=== PATIENT | male | born 1990 | race Caucasian/White ===

== ENCOUNTER 2017-02-22 18:38 | Emergency (ER) | payer OTHER ==
--- NOTE | 2017-02-22 18:51 | EDM.PDOC ---
<Carroll Paulson M - Last Filed: 02/22/17 18:46> ED HPI GENERAL MEDICAL PROBLEM - General Chief Complaint: Lower Extremity Injury/Pain Stated Complaint: FOOT INJURY Time Seen by Provider: 02/22/17 18:46 Source of Information: Reports: Patient History Limitations: Reports: No Limitations - History of Present Illness INITIAL COMMENTS - FREE TEXT/NARRATIVE: Patient reports putting his foot into an auger hole and twisted his foot. This happened around 2 today. He has iced the foot. He rates his pain a 5-6, but pain is worsening. He has no other complaints. Smokes 1 PPD x 6 years. No drugs, no alcohol. Onset: Today Onset Time: 14:00 Duration: Getting Worse Location: Reports: Lower Extremity, Right Quality: Reports: Ache, Sharp Severity: Moderate Worsens with: Reports: Movement Context: Reports: Other (at work) Associated Symptoms: Reports: No Other Symptoms - Related Data Allergies Allergy/AdvReac Type Severity Reaction Status Date / Time Penicillins Allergy Rash Verified 02/22/17 18:49 Home Meds: Home Meds FLUoxetine [PROzac] 40 mg DAILY 06/17/16 [History] buPROPion HCl [Wellbutrin Xl] 150 mg PO DAILY 02/22/17 [History] Past Medical History Psychiatric History: Reports: Anxiety, Depression Social & Family History - Tobacco Use Smoking Status *Q: Current Every Day Smoker Years of Tobacco use: 5 Packs/Tins Daily: 1 - Alcohol Use Days Per Week of Alcohol Use: 7 Number of Drinks Per Day: 3 Total Drinks Per Week: 21 - Recreational Drug Use Recreational Drug Use: Yes Drug Use in Last 12 Months: Yes Recreational Drug Type: Reports: Marijuana/Hashish Recreational Drug Use Frequency: Daily Recreational Drug Last Use: 05/29/14 Review of Systems - Review of Systems Review Of Systems: See Below Constitutional: Reports: No Symptoms Eyes: Reports: No Symptoms Ears: Reports: No Symptoms Nose: Reports: No Symptoms Mouth/Throat: Reports: No Symptoms Respiratory: Reports: No Symptoms Cardiovascular: Reports: No Symptoms GI/Abdominal: Reports: No Symptoms Genitourinary: Reports: No Symptoms Musculoskeletal: Reports: Foot Pain Skin: Reports: No Symptoms Neurological: Reports: No Symptoms Psychiatric: Reports: No Symptoms ED EXAM, GENERAL - Physical Exam Exam: See Below Free Text/Narrative:: Right foot examined with no palpable or visible deformity noticed. Exam Limited By: No Limitations General Appearance: Alert, WD/WN, Anxious, Mild Distress Eye Exam: Bilateral Eye: EOMI, PERRL Head: Atraumatic, Normocephalic Cardiovascular: Tachycardia Extremities: Normal Inspection, Normal Range of Motion, Non-Tender, No Pedal Edema, Normal Capillary Refill Neurological: Alert, Oriented, CN II-XII Intact, Normal Cognition, No Motor/ Sensory Deficits Psychiatric: Normal Affect, Normal Mood Skin Exam: Warm, Dry, Intact, Normal Color Course - Vital Signs Last Recorded V/S: Last Vital Signs Temp 37.6 C 02/22/17 18:40 Pulse 120 H 02/22/17 18:40 Resp 20 02/22/17 18:40 BP 165/79 H 02/22/17 18:40 Pulse Ox - Orders/Labs/Meds Orders: Active Orders 24 hr Category Date Time Status Foot Comp Min 3V Rt [CR] Stat Exams 02/22/17 18:48 Ordered Departure - Departure Disposition: Home, Self-Care 01 Clinical Impression: Encounter related to worker's compensation claim Right ankle sprain Qualifiers: Encounter type: initial encounter Involved ligament of ankle: unspecified ligament Qualified Code(s): S93.401A - Sprain of unspecified ligament of right ankle, initial encounter Fall Qualifiers: Encounter type: initial encounter Qualified Code(s): W19.XXXA - Unspecified fall, initial encounter - Discharge Information Instructions: Ankle Sprain Referrals: Leticia Rios MEDICAL CLINIC MANAGER [Primary Care Provider] - Forms: ED Department Discharge Additional Instructions: 1. Stay well hydrated and rest 2. Use PRIYANKA wrap to help control swelling and pain 3. Rest, elevate, and ice several times a day 4. May weight bare as tolerated 5. Symptoms may get worse over the next couple days, this is normal 6. Schedule a follow up appointment with your Primary for next week for a recheck <Bert Munoz - Last Filed: 02/22/17 19:26> ED HPI GENERAL MEDICAL PROBLEM Right Feet Pain Score (Numeric/FACES): 5 Social & Family History - Family History Family Medical History: Noncontributory Course - Radiology Interpretation Free Text/Narrative:: Ankle xray: No acute fracture or dislocation; see scanned document in EMR Departure - Departure Time of Disposition: 19:24 Condition: Good - Problem List Review Problem List Initiated/Reviewed/Updated: Yes
[2017-02-22 19:04] VITALS: BP 165/79
== END 2017-02-22 19:37 | disposition home or self-care (01) ==
LOC: VM.ED 18:38
DX: S93.401A Sprain of unspecified ligament of right ankle, initial encounter (principal); F17.210 Nicotine dependence, cigarettes, uncomplicated; F41.9 Anxiety disorder, unspecified; F32.9 Major depressive disorder, single episode, unspecified; Z79.899 Other long term (current) drug therapy; Z88.0 Allergy status to penicillin; W19.XXXA Unspecified fall, initial encounter; X50.1XXA Overexertion from prolonged static or awkward postures, initial encounter; Y92.69 Other specified industrial and construction area as the place of occurrence of the external cause; Y99.0 Civilian activity done for income or pay
CPT/HCPCS: 73630-RT; 99283

== ENCOUNTER 2020-03-15 15:21 | Emergency (ER) | payer OTHER ==
[2020-03-15 15:35] VITALS: BP 120/82; PULSE 95
--- NOTE | 2020-03-15 15:46 | EDM.PDOC ---
ED HPI GENERAL MEDICAL PROBLEM - General Chief Complaint: Laceration Stated Complaint: LACERATION TO RIGHT KNUCKLE Time Seen by Provider: 03/15/20 15:30 Source of Information: Reports: Patient History Limitations: Reports: No Limitations - History of Present Illness INITIAL COMMENTS - FREE TEXT/NARRATIVE: Patient comes into the emergency department with complaints of a laceration to his right hand. States that he was up moving and his hand slipped and slid underneath some metal causing a laceration to his fourth digit knuckle the patient states he was able to control the bleeding with direct pressure. Patient denies any numbness or tingling sensation distally or proximally of the laceration. He also denies any concerns with CMS or range of motion issues. Patient states that he has no recollection of when his Tdap was last he did but does feel that it was greater than 5 years ago. Denies any other concerns or complaints and states he is been relatively healthy. Onset: Today, Sudden Location: Reports: Upper Extremity, Right Quality: Reports: Throbbing Severity: Mild Improves with: Reports: Immobilization Worsens with: Reports: Movement Context: Reports: Activity Associated Symptoms: Reports: No Other Symptoms Right Finger-Ring Pain Score (Numeric/FACES): 5 - Related Data Allergies Allergy/AdvReac Type Severity Reaction Status Date / Time Penicillins Allergy Rash Verified 03/15/20 15:37 Home Meds: Home Meds FLUoxetine [PROzac] 40 mg PO DAILY 06/17/16 [History] buPROPion HCL [Wellbutrin Xl] 150 mg PO DAILY 02/22/17 [History] Past Medical History - Past Health History Medical/Surgical History: Denies Medical/Surgical History Psychiatric History: Reports: Anxiety, Depression Social & Family History - Family History Family Medical History: Noncontributory ED ROS GENERAL - Review of Systems Review Of Systems: Comprehensive ROS is negative, except as noted in HPI. Constitutional: Reports: No Symptoms HEENT: Reports: No Symptoms Respiratory: Reports: No Symptoms Cardiovascular: Reports: No Symptoms Endocrine: Reports: No Symptoms GI/Abdominal: Reports: No Symptoms Musculoskeletal: Reports: No Symptoms Skin: Reports: No Symptoms Neurological: Reports: No Symptoms Psychiatric: Reports: No Symptoms Hematologic/Lymphatic: Reports: No Symptoms Immunologic: Reports: No Symptoms ED EXAM, SKIN/RASH Exam: See Below Exam Limited By: No Limitations General Appearance: Alert, WD/WN, No Apparent Distress Neurological: Alert, Oriented, Normal Cognition, Normal Gait Psychiatric: Normal Affect, Normal Mood Skin: Warm, Dry, Intact, Normal Color Location, Skin: Upper Extremity, Right Characteristics: Linear, Other (laceration ) ED SKIN PROCEDURES - Laceration/Wound Repair Right Digit - 4th (Ring) Appearance: Linear Distal NVT: Neuro & Vascular Intact, No Tendon Injury Anesthetic Type: Local Local Anesthesia - Lidocaine (Xylocaine): 1% Plain Local Anesthetic Volume: 4cc Skin Prep: Chlorhexidine (Hibiciens) Exploration/Debridement/Repair: Wound Explored, Explored to Base Closed with: Sutures Lac/Wound length In cm: 2.5 Suture Size: 4-0 # of Sutures: 8 Suture Type: Simple Sterile Dressing Applied: Nurse Tetanus Status Addressed: Yes Complications: No Course - Vital Signs Last Recorded V/S: Last Vital Signs Temp 35.7 C L 03/15/20 15:29 Pulse 95 03/15/20 15:29 Resp 18 03/15/20 15:29 BP 120/82 03/15/20 15:29 Pulse Ox 96 03/15/20 15:29 - Orders/Labs/Meds Meds: Medications Discontinued Medications Generic Name Dose Route Start Last Admin Trade Name Patti PRN Reason Stop Dose Admin Lidocaine HCl 5 ml 03/15/20 15:41 03/15/20 15:45 Xylocaine-Mpf 1% INJECT 03/15/20 15:42 5 ml ONETIME ONE Administration Departure - Departure Time of Disposition: 16:10 Disposition: Home, Self-Care 01 Condition: Good Clinical Impression: Laceration - Discharge Information *PRESCRIPTION DRUG MONITORING PROGRAM REVIEWED*: Not Applicable *COPY OF PRESCRIPTION DRUG MONITORING REPORT IN PATIENT LAZARO: Not Applicable Instructions: Laceration Care, Adult, [id number] Referrals: Leticia Rios NP [Primary Care Provider] - Forms: ED Department Discharge Additional Instructions: 1. Rest 2. Keep the area clean and dry 3. Can use tylenol and ibuprofen as needed for pain and discomfort 4. Diet as tolerated 5. Activity as tolerated 6. Elevated the injured area above the level of the heart to decrease swelling and discomfort if applicable 7. Can use ice 3-4 times a day at 20-minute intervals to help with any swelling and discomfort 8. Follow-up with your primary care provider symptoms continue or to progress 9. Discharge information has been provided regarding your injury and wound care has been provided 10. Avoid an public pools or hot tubes until wound is healed. 11. Follow up in the Clinic in 10 days for removal of sutures Sepsis Event Note (ED) - Evaluation Sepsis Screening Result: No Definite Risk - Focused Exam Vital Signs: Vital Signs Temp Pulse Resp BP Pulse Ox 03/15/20 15:29 35.7 C L 95 18 120/82 96 - Assessment/Plan Assessment:: 1. laceration right hand Plan: 1. Wound cleansing completed 2. Laceration repair completed 3. Tdap vaccine history completed- 2016 records state 4. Education regarding wound care, dressing changes, OTC medications, activity, diet, follow up care and when to seek care if warranted provided 5. Patient is to return to the clinic in 10 days to have sutures site evaluated and removed 6. Patient was encouraged to call or return if any questions or concerns arise.
== END 2020-03-15 16:36 | disposition home or self-care (01) ==
LOC: VM.ED 15:21
DX: S61.214A Laceration without foreign body of right ring finger without damage to nail, initial encounter (principal); Z88.0 Allergy status to penicillin; F41.9 Anxiety disorder, unspecified; F32.9 Major depressive disorder, single episode, unspecified; Z79.899 Other long term (current) drug therapy; W26.8XXA Contact with other sharp object(s), not elsewhere classified, initial encounter
CPT/HCPCS: 12001; 99282; J2001; 99283-GF